=== PATIENT | male | born 1945 | race African-American/Black ===

== ENCOUNTER 2018-10-10 11:42 | Emergency (ER) | payer MEDICARE, OTHER ==
[~2018-10-10] VITALS: Ht 175.3 cm; Wt 75.0 kg
[~2018-10-10 11:42] MED LIST: ASMANAX INH; GABA-531 PO; LEVO100T MT; METF-815 PO; SIMV20TA6 PO; [UNRECOGNIZED DRUG - OTHER] INH
[2018-10-10] MEDS ORDERED: KETOROLAC 30MG/ML VIAL IV ONE (13:30)
[2018-10-10] MEDS ORDERED: DEXAMETHASONE 10 MG/ML VIAL IV ONE (13:30)
[2018-10-10 14:37] LABS: BASOPHILS % 0.5 % (0.0-2.0); EOSINOPHILS % 0.1 % (0.0-5.0); HEMATOCRIT. 53.7 % (42.0-52.0); HEMOGLOBIN. 17.8 g/dL (14.0-18.0); LYMPHOCYTES % 14.1 % (20.0-50.0); MEAN CORPUSCULAR HEMOGLOBIN 28.7 pg (28.0-32.0); MEAN CORPUSCULAR VOLUME 86.5 fL (80.0-94.0); MEAN PLATELET VOLUME 8.3 fl (7.4-10.4); MONOCYTES % 10.1 % (2.0-8.0); NEUTROPHILS % 75.2 % (40.0-76.0); PLATELET 282 x1000/uL (130-400); RED BLOOD CELL COUNT 6.21 mill/uL (4.7-6.1); RED CELL DISTRIBUTION WIDTH 14.8 % (11.6-14.6)
[2018-10-10 14:41] LABS: CHLORIDE 103 mEq/L (98-107); INR 1.2; PARTIAL THROMBOPLASTIN TIME 28.9 sec (23.4-31.0); PROTHROMBIN TIME 12.1 sec (9.6-11.0)
[2018-10-10 17:30] VITALS: BP 126/67
== END 2018-10-10 18:12 | disposition home or self-care (01) ==
LOC: ER 11:42
DX: M10.072 Idiopathic gout, left ankle and foot (principal); M10.071 Idiopathic gout, right ankle and foot; J44.9 Chronic obstructive pulmonary disease, unspecified; I10 Essential (primary) hypertension; E11.9 Type 2 diabetes mellitus without complications; Z88.5 Allergy status to narcotic agent; Z79.899 Other long term (current) drug therapy; Z86.73 Personal history of transient ischemic attack (TIA), and cerebral infarction without residual deficits
CPT/HCPCS: 36415; 71045; 73630; 80053; 83605; 84550; 85025; 85610; 85730; 93005; 96374; 96375; 99284; J1100; J1885